=== PATIENT | female | born 2000 | race African-American/Black ===

== ENCOUNTER → 2018-08-26 | Outpatient (CLI) | payer BC | LOC: LABNPT 17:26 | PROVIDERS: ATTEND Nurse Practitioner Family | DX: R10.30 Lower abdominal pain, unspecified (principal) | CPT/HCPCS: 87088 ==

== ENCOUNTER 2020-04-26 20:28 | Emergency (ER) | payer BC, OTHER ==
[~2020-04-26] VITALS: Ht 155 cm; Wt 95.9 kg
--- OUTSIDE RECORDS SUMMARY | 2020-04-26 20:33 | XMS REPORT | Continuity of Care Document ---
Author Organization Unknown Address Unknown Phone Unavailable Allergies There is no data. Medications There is no data. 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 Ot R10.30 LOWER ABDOMINAL PAIN, UNSPECIFIED 08/31/2018 LARERY, ERMA NEONATAL SOCIAL WORKER-C Ot R10.30 LOWER ABDOMINAL PAIN, UNSPECIFIED 09/12/2018 LARERY, ERMA NEONATAL SOCIAL WORKER-C Ot R10.30 LOWER ABDOMINAL PAIN, UNSPECIFIED 09/29/2018 LARERY, ERMA NEONATAL SOCIAL WORKER-C Ot R10.30 LOWER ABDOMINAL PAIN, UNSPECIFIED 03/06/2019 LARERY, ERMA NEONATAL SOCIAL WORKER-C Ot R10.30 LOWER ABDOMINAL PAIN, UNSPECIFIED 05/18/2019 LARERY, ERMA NEONATAL SOCIAL WORKER-C Ot R10.30 LOWER ABDOMINAL PAIN, UNSPECIFIED 05/18/2019 LARERY, ERMA NEONATAL SOCIAL WORKER-C Ot R10.30 LOWER ABDOMINAL PAIN, UNSPECIFIED Procedures There is no data. Results Test Result Range Bacterial urine culture - 08/26/18 17:29 Bacterial urine culture SEE REPORT NRG COLONY COUNT . NRG Encounters ACCT No. Visit Date/Time Discharge Status Pt. Type Provider Facility Loc./Unit Complaint [id number] 08/26/2018 17:26:00 018 23:59:59 CLS Outpatient ALFREDO, ERMA NEONATAL SOCIAL WORKER-C [facility] LABNPT LOWER ABD PAIN
[2020-04-26 20:35] VITALS: BP 135/79
[2020-04-26] MEDS ORDERED: ONDANSETRON 4 MG (ZOFRAN) ORAL DISSOLVE TAB SL ONE (20:45)
[2020-04-26] MEDS ORDERED: IBUP-1773 (20:45)
[2020-04-26] MEDS ORDERED: ANTACID SUSP 30 ML UDC (MYLANTA) PO ONE (20:45)
[2020-04-26] MEDS ORDERED: LIDOCAINE 2% VISCOUS 15 ML UDC PO ONE (20:45)
--- NOTE | 2020-04-26 21:05 | ED General ---
General Chief Complaint: Abdominal/GI Problems Stated Complaint: CHEST/BACK PAIN Nursing Triage Note: epigastric pain after eating, mid back pain since . denies cough,fever,nausea/vomitting, soa. Nursing Sepsis Screen: No Definite Risk Source of Information: Patient Exam Limitations: No Limitations History of Present Illness Date Seen by Provider: Apr 26, 2020 Time Seen by Provider: 20:35 Initial Comments This 19-year-old young lady presents to the emergency room with pain in the epigastrium and chest radiating to her mid back. Symptoms have been present for 3 days. She presented to the chiropractor for adjustment but that didn't seem to help. There is some exacerbation with deep breathing and with movement. She denies nausea or vomiting. She denies any prior history of acid reflux or gastritis. She is status post cholecystectomy. She does not believe eating significantly affects her symptoms. On she thought she had food stuck in her throat and drank a lot of water to help clear that. Allergies and Home Medications Allergies Coded Allergies: amoxicillin (Verified Allergy, Unknown, 04/26/20) clavulanic acid (Verified Allergy, Unknown, 04/26/20) Home Medications Omeprazole 20 Mg Capsule.dr, 20 MG PO BID Prescribed by: MACY FOLEY on 04/26/202120 Patient Home Medication List Home Medication List Reviewed: Yes Review of Systems Review of Systems Constitutional: no symptoms reported EENTM: no symptoms reported Respiratory: no symptoms reported Cardiovascular: no symptoms reported Gastrointestinal: see HPI Genitourinary: no symptoms reported : No Musculoskeletal: see HPI Skin: no symptoms reported Psychiatric/Neurological: No Symptoms Reported Hematologic/Lymphatic: No Symptoms Reported Past Rnzwljh-Laooqh-Hpxhfy Hx Past Med/Social Hx: Reviewed Nursing Past Med/Soc Hx Patient Social History Alcohol Use: Rarely Uses Recreational Drug Use: No Smoking Status: Never a Smoker 2nd Hand Smoke Exposure: No Recent Foreign Travel: No Contact w/Someone Who Travel: No Recent Infectious Disease Expo: No Recent Hopitalizations: No Physical Abuse: No Sexual Abuse: No Mistreated: No Fear: No Immunizations Up To Date Tetanus Booster (TDap): Unknown Seasonal Allergies Seasonal Allergies: No Past Medical History Surgeries: Yes Gallbladder Respiratory: No Cardiac: No Neurological: No : No Last Menstrual Period: Apr 06, 2020 Genitourinary: No Gastrointestinal: No Musculoskeletal: No Endocrine: No HEENT: No Cancer: No Psychosocial: No Integumentary: No Blood Disorders: No Physical Exam Vital Signs Vital Signs - First Documented 04/26/20 20:35 Temp 36.5 Pulse 92 Resp 18 B/P (MAP) 135/79 (97) Pulse Ox 99 O2 Delivery Room Air Capillary Refill : Less Than 3 Seconds Height, Weight, BMI Height: '" Weight: lbs. oz. kg; 39.00 BMI Method: General Appearance: No Apparent Distress, WD/WN, Obese HEENT: PERRL/EOMI, Normal ENT Inspection, Pharynx Normal Neck: Normal Inspection Respiratory: Lungs Clear, Normal Breath Sounds, No Accessory Muscle Use, No Respiratory Distress Cardiovascular: Regular Rate, Rhythm, No Edema, No Murmur Gastrointestinal: Normal Bowel Sounds, Non Tender, Soft, Other (patient states she can elicit epigastric tenderness with palpation) Back: Normal Inspection, No Vertebral Tenderness Extremity: Normal Inspection, No Pedal Edema Neurologic/Psychiatric: Alert, Oriented x3, No Motor/Sensory Deficits, Normal 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, 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 Skin: Normal Color, Warm/Dry Progress/Results/Core Measures Suspected Sepsis Recent Fever Within 48 Hours: No Infection Criteria Present: None New/Unexplained Altered Menta: No Sepsis Screen: No Definite Risk SIRS Temperature: Pulse: 92 Respiratory Rate: 18 Blood Pressure 135 /79 Mean: 97 Results/Orders My Orders Orders - MACY CARRIZALES MD Ondansetron Oral Dissolve Tab (Zofran (04/26/20 20:45) Lidocaine 2% Viscous 15 Ml (Xylocaine Vi (04/26/20 20:45) Antacid Suspension (Mylanta Suspension (04/26/20 20:45) Pantoprazole Tablet (Protonix Tablet) (04/26/20 21:15) Medications Given in ED Current Medications Medications Dose Ordered Sig/Tomasa Route Start Time Stop Time Status Last Admin Dose Admin Al Hydrox/Mg Hydrox/Simethicone 30 ml ONCE ONCE PO 04/26/20 20:45 04/26/20 20:46 DC 04/26/20 20:47 30 ML Lidocaine HCl 15 ml ONCE ONCE PO 04/26/20 20:45 04/26/20 20:46 DC 04/26/20 20:47 15 ML Ondansetron HCl 4 mg ONCE ONCE SL 04/26/20 20:45 04/26/20 20:46 DC 04/26/20 20:47 4 MG Vital Signs/I&O 04/26/20 20:35 Temp 36.5 Pulse 92 Resp 18 B/P (MAP) 135/79 (97) Pulse Ox 99 O2 Delivery Room Air Capillary Refill : Less Than 3 Seconds Blood Pressure Mean: 97 Progress Note : Progress Note Patient was given Zofran and a GI cocktail with moderate improvement in her pain. Protonix was given prior to discharge. Departure Impression Primary Impression: Atypical chest pain Additional Impressions: Upper back pain Epigastric pain Disposition: HOME, SELF-CARE Condition: Improved Departure-Patient Inst. Decision time for Depature: 21:17 Referrals: NO,LOCAL PHYSICIAN (PCP/Family) Primary Care Physician Patient Instructions: Acid Reflux and Gastroesophageal Reflux Disease in Adults, Gastritis, Upper Back Pain Add. Discharge Instructions: Try taking an antacid medication such as omeprazole for the next 2 weeks. Omeprazole 20 mg twice daily should be sufficient. You may fill the prescription provided or purchase [id number]. You may take Tylenol (acetaminophen) up to 1000 mg every 6 hours as needed for pain but avoid NSAID medications such as ibuprofen or naproxen as they may worse n stomach upset or acid reflux. Avoid the following: Eating large meals, eating close to bedtime, caffeine, carbonation, chocolate, citrus fruits and juices, tomato products, alcohol, tobacco, mints, spicy foods, fatty or greasy foods, or anything else you know irritates your stomach. Avoid wearing tight clothing presses on your abdomen. Weight loss can help reduce pressure on the stomach and acid reflux. If you have worsening symptoms or symptoms are not improving over the next week as expected, please return to care or follow up with your primary care provider. All discharge instructions reviewed with patient and/or family. Voiced understanding. Scripts Omeprazole (Omeprazole) 20 Mg Capsule. 20 MG PO BID, #30 CAP Prov: MACY CARRIZALES MD 04/26/20 MACY CARRIZALES MD Apr 26, 2020 21:05
[2020-04-26] MEDS ORDERED: PANTOPRAZOLE 40 MG (PROTONIX) TAB PO ONE (21:15)
[2020-04-26] MEDS ORDERED: OMEP20CA18 PO (21:21)
== END 2020-04-26 21:26 | disposition home or self-care (01) ==
LOC: EDUNIT# 20:28 → ER 20:29
DX: R07.89 Other chest pain (principal); M54.6 Pain in thoracic spine; R10.13 Epigastric pain; Z88.0 Allergy status to penicillin; Z88.1 Allergy status to other antibiotic agents; Z90.49 Acquired absence of other specified parts of digestive tract
CPT/HCPCS: 99283

== ENCOUNTER → 2022-01-26 | Outpatient (CLI) | payer OTHER ==
[~2022-01-26] MED LIST: IBUP-1773; OMEP20CA18 PO
--- NOTE | 2022-01-26 15:31 | Diagnostic Imaging Report ---
INDICATION: Injury to the right 5th toe. TIME OF EXAM: 2:37 PM. FINDINGS: The metatarsals are intact. The phalanges are intact. The midfoot and hindfoot are unremarkable. No fractures are seen. IMPRESSION: No acute bony abnormality is detected. Dictated by: Dictated on workstation # [id number]
== END ==
LOC: RAD 14:15
PROVIDERS: ATTEND Nurse Practitioner
DX: S99.921A Unspecified injury of right foot, initial encounter (principal); X58.XXXA Exposure to other specified factors, initial encounter
CPT/HCPCS: 73630

== ENCOUNTER → 2022-02-23 | Outpatient (CLI) | payer OTHER ==
--- NOTE | 2022-02-23 14:03 | Diagnostic Imaging Report ---
INDICATION: Ankle pain EXAMINATION: Left ankle 02/23/2022 FINDINGS: There is diffuse soft tissue swelling about the ankle with bandage material surrounding the ankle also noted. No fractures or dislocations appreciated. Talar dome is intact. IMPRESSION: 1. Soft tissue swelling with no underlying fractures appreciated. Dictated by: Dictated on workstation # [id number]
== END ==
LOC: RAD 10:54
PROVIDERS: ATTEND Nurse Practitioner
DX: M25.572 Pain in left ankle and joints of left foot (principal); M25.472 Effusion, left ankle
CPT/HCPCS: 73610